=== PATIENT | female | born 1980 | race Caucasian/White ===

== ENCOUNTER 2016-11-23 13:15 | Emergency (ER) ==
[2016-11-23 13:47] LABS: MANUAL DIFF NEEDED? NO
--- NOTE | 2016-11-23 13:49 | PROVIDER DOCUMENTATION ---
HPI-Chest Pain - General Source: patient - History of Present Illness-CP Location: reports: central Chest Pain Radiation: reports: arms (L) Quality of Pain: reports: stabbing Severity in ED: mild Onset/Duration: this afternoon (1215) Timing: still present, intermittent Context/Activities at Onset: reports: light activity Modifying Factors: improves with: nothing Associated Symptoms: reports: nausea, vomiting. denies: abdominal pain, back pain, diaphoresis, dizziness, edema, fatigue, fever/chills, headache, heartburn , rash, shortness of breath, swelling/lump in chest, syncope, weakness Nitro Today/Relief: no nitro taken today Aspirin Treatment Today: no aspirin today (allergy to aspirin) Prior Chest Pain/Cardiac Workup: reports: no prior chest pain, no prior cardiac workup Similar Symptoms Previously?: No Recently Seen Here or By Another Healthcare Provider: No <Kym Martinez - Last Filed: 11/23/16 15:01> <Ari Ventura I - Last Filed: 11/23/16 15:24> - General Chief Complaint: Chest Pain Stated Complaint: chest pain Time Seen by Provider: 11/23/16 13:20 Allergies/Adverse Reactions: Patient Allergies Allergy/AdvReac Type Severity Reaction Status Date / Time aspirin Allergy SHORTNESS Verified 11/23/16 13:19 OF BREATH latex Allergy RASH Verified 11/23/16 13:19 Penicillins Allergy Unknown Verified 11/23/16 13:19 Sulfa (Sulfonamide Allergy Unknown Verified 11/23/16 13:19 Antibiotics) - History of Present Illness-CP Nature of Presenting Problem: Pt is 36 y/o F presents to the ED with chest pain. Pt states she was on her lunch break smoking when the chest pain started. Pt states the chest pain radiates to L arm. Pt states last night having a stomach virus causing her to have N/V/D. Pt states the pain is stabbing. Pt states still having N and V. ( Kym Martinez) Review of Systems - Adult - REVIEW OF SYSTEMS - ADULT Constitutional: denies: chills, fever Eyes: denies: decreased vision, blurred vision, double vision Ears, Nose, Mouth & Throat: denies: ear pain, nose pain, mouth swelling, throat pain Cardiovascular: reports: chest pain. denies: heart murmur, irregular heart rate Respiratory: denies: cough, shortness of breath, wheezing Gastrointestinal: denies: abdominal pain, diarrhea, nausea, vomiting Genitourinary: denies: dysuria, hematuria Musculoskeletal: reports: other (L arm pain). denies: bone pain, joint pain, neck pain Integumentary: denies: hives, itching Neurological: denies: dizziness/vertigo, headache/migraines Psychiatric: reports: no symptoms reported Endocrine: reports: no symptoms reported Hematologic/Lymphatic: reports: no symptoms reported Allergic/Immunologic: reports: no symptoms reported All Other Systems: Reviewed and Negative <Kym Martinez - Last Filed: 11/23/16 15:01> Past History - Adult - PAST MEDICAL HISTORY-ADULT Review of Records: reports: Nursing Assessment Review, Medications Reviewed, Social history reviewed & non-contributory. Major Childhood Illnesses: reports: denies history Cardiovascular: reports: denies history Respiratory: reports: denies history Gastrointestinal: reports: denies history Obstetrical/Gynecological: reports: denies history Genitourinary: reports: denies history Musculoskeletal: reports: denies history Neurological: reports: denies history Endocrine/Immune: reports: denies history Other Conditions: reports: denies history - PRIOR SURGERIES/PROCEDURES Surgical/Procedure History: reports: hysterectomy - IMMUNIZATION STATUS Childhood Immunizations: See Nurse Assessment Flu Vaccine: See Nurse Assessment - FAMILY HISTORY Family History: reviewed, not pertinent - SOCIAL HISTORY Smoking: cigarettes, less than 1 pack/day Provider spent 3-5 mins advising pt. on dangers of tobacco.: Discussed manners to quit use, and f/u contacts for add'l counseling. Substance Use: denies Living Situation: family <Kym Martinez - Last Filed: 11/23/16 15:01> Physical Exam-General - PHYSICAL EXAM-ADULT Initial Vital Signs Reviewed: Yes - CONSTITUTIONAL General Appearance: appears well, alert, no apparent distress - EYES Eyes: PERRL/EOMI, pink conjunctivae, fundi clear, no AV nicking - HEAD, EARS, NOSE, MOUTH & THROAT HENMT: normocephalic/atraumatic, moist mucous membranes, normal ENT inspection, TMs normal, pharynx normal - NECK Neck: non-tender, full range of motion, supple, normal inspection - RESPIRATORY Respiratory: chest non-tender, lungs clear, normal breath sounds, no pleuratic chest pain, no respiratory distress, no accessory muscle use - CARDIOVASCULAR Cardiovascular: normal peripheral pulses, regular rate, rhythm, no edema, no gallop, no JVD, no murmur - GASTROINTESTINAL (ABDOMEN) Abdominal Exam: normal bowel sounds, non tender, soft, no organomegaly, no pulsatile mass - LYMPHATIC Lymphatic: no adenopathy - MUSCULOSKELETAL Back Exam: normal inspection, no CVA tenderness, no vertebral tenderness Extremity: normal range of motion, non-tender, normal gait, normal inspection, no pedal edema, no calf tenderness, normal capillary refill - SKIN Integumentary: normal color, normal turgor, warm/dry - NEUROLOGIC Neurologic: grossly normal - PSYCHIATRIC Psych/Mental Status: normal mood/affect, oriented x 3 <Kym Martinez - Last Filed: 11/23/16 15:01> Progress - EKG 1 Time of EKG reading by physician:: 13:12 EKG Read and Signed by:: Ari Ventura EKG Interpretation (*Must complete 3 of following elements*): Normal Rate: 81 Rhythm: normal sinus rhythm Comments: normal ECG - XRAY 1 XRAY: Bilateral XRAY Study: Chest Impression: Normal XRAY Interpretation: negative exam <Kym Martinez - Last Filed: 11/23/16 15:01> <Ari Ventura I - Last Filed: 11/23/16 15:24> - PLAN OF CARE/RESULTS Progress/Plan/Lab Results: Laboratory Tests 11/23/16 13:30 WBC 9.23 RBC 4.07 L Hgb 13.2 Hct 38.3 MCV 94.1 MCH 32.4 H MCHC 34.5 RDW Std Deviation 12.4 Plt Count 294 MPV 10.4 Immature Gran % (Auto) 0.2 Neut % (Auto) 62.3 Lymph % (Auto) 30.2 [place] % (Auto) 6.8 Eos % (Auto) 0.2 Baso % (Auto) 0.3 Immature Gran # (Auto) 0.02 Neut # (Auto) 5.74 Lymph # (Auto) 2.79 [place] # (Auto) 0.63 H Eos # (Auto) 0.02 Baso # (Auto) 0.03 Orders Category Date Time Status Cardiac Monitoring DIRECTED Care 11/23/16 13:19 Active Oxygen Therapy- ED Nursing DIRECTED Care 11/23/16 13:19 Active Saline Loc NOW Care 11/23/16 13:19 Active CHEST-2 VIEWS [RAD] Stat Exams 11/23/16 13:19 Taken CBC WITH ELECTRONIC DIFF [HEME] Stat Lab 11/23/16 13:19 Ordered CK PROFILE [SP CHEM] Stat Lab 11/23/16 13:19 Ordered COMPREHENSIVE METABOLIC PANEL [CHEM] Stat Lab 11/23/16 13:19 Ordered MAGNESIUM [CHEM] Stat Lab 11/23/16 13:19 Ordered PRO B-NATRIURETIC PEPTIDE Stat Lab 11/23/16 13:[address]IME WITH INR PL [COAG] Stat Lab 11/23/16 13:[address] [COAG] Stat Lab 11/23/16 13:19 Ordered TROPONIN T Stat Lab 11/23/16 13:19 Ordered EKG [EKG] Stat Ther 11/23/16 13:19 Ordered Vital Signs - 24 hr 11/23/16 13:15 Temperature 97.2 F L Pulse Rate 89 Respiratory 18 Rate Blood Pressure 117/91 O2 Sat by Pulse 97 Oximetry Laboratory Tests 11/23/16 11/23/16 11/23/16 13:30 13:30 13:30 WBC RBC Hgb Hct MCV MCH MCHC RDW Std Deviation Plt Count MPV Immature Gran % (Auto) Neut % (Auto) Lymph % (Auto) [place] % (Auto) Eos % (Auto) Baso % (Auto) Immature Gran # (Auto) Neut # (Auto) Lymph # (Auto) [place] # (Auto) Eos # (Auto) Baso # (Auto) PT INR APTT (Factor Assay) Sodium 137 Potassium 3.7 Chloride 102 Carbon Dioxide 25 Anion Gap 10 BUN 9 Creatinine 0.6 Estimated GFR/1.73 m2 > 60 BUN/Creatinine Ratio 15 Glucose 112 H Calculated Osmolality 273 Calcium 9.3 Magnesium 2.0 Total Bilirubin 0.30 AST 16 ALT 10 Alkaline Phosphatase 63 Creatine Kinase 51 Troponin T < 0.010 [id number] Pept 24 Total Protein 6.3 Albumin 4.3 Globulin 2.0 Albumin/Globulin Ratio 2.0 11/23/16 11/23/16 13:30 13:30 WBC 9.23 RBC 4.07 L Hgb 13.2 Hct 38.3 MCV 94.1 MCH 32.4 H MCHC 34.5 RDW Std Deviation 12.4 Plt Count 294 MPV 10.4 Immature Gran % (Auto) 0.2 Neut % (Auto) 62.3 Lymph % (Auto) 30.2 [place] % (Auto) 6.8 Eos % (Auto) 0.2 Baso % (Auto) 0.3 Immature Gran # (Auto) 0.02 Neut # (Auto) 5.74 Lymph # (Auto) 2.79 [place] # (Auto) 0.63 H Eos # (Auto) 0.02 Baso # (Auto) 0.03 PT 13.7 INR 1.02 APTT (Factor Assay) 30.2 Sodium Potassium Chloride Carbon Dioxide Anion Gap BUN Creatinine Estimated GFR/1.73 m2 BUN/Creatinine Ratio Glucose Calculated Osmolality Calcium Magnesium Total Bilirubin AST ALT Alkaline Phosphatase Creatine Kinase Troponin T [id number] Pept Total Protein Albumin Globulin Albumin/Globulin Ratio (Kym Martinez) Departure <Kym Martinez - Last Filed: 11/23/16 15:01> - Departure Time of Disposition Order: 15:23 Certified Medical Emergency: Emergent <Ari Ventura I - Last Filed: 11/23/16 15:24> - Departure DIAGNOSIS: Atypical chest pain Disposition: HOME 01 Condition: Stable Referrals: Tiffanie Echols MD [Primary Care Provider] - Attestation - Scribe Verification/Attestation Scribe:: Kym Martinez Acting as Scribe for:: Ari Ventura Scribe documention review:: This chart was documented by a scribe and accurately reflects the service the provider performed and the decisions made by the provider. <Kym Martinez - Last Filed: 11/23/16 15:01> - Physician/ JEANIE Attestation Patient care was provided by Advanced Practice Provider:: Yes Advanced Practice Provider documentation review:: The Mid-level provider documentation, treatment plan and medical decision making was reviewed by the physician who agrees with all treatment and medical decision making by the MLP. The physician spent face to face time with patient:: Yes Advanced Practice Provider documentation review:: The physician spent face to face time with this patient and agrees with all MLP documentation, treatment, and medical decision making by the MLP. See provider notes for further information. <Ari Ventura I - Last Filed: 11/23/16 15:24> Physician Attestation - Physician Attestation I, the provider, attest to the following statement:: Ari Ventura Physician documentation Attestation:: This documentation recorded by the scribe accurately reflects the service I personally performed and the decisions made by me. <Ari Ventura I - Last Filed: 11/23/16 15:24>
[2016-11-23 13:50] LABS: BASO% 0.3 % (0.0-0.8); EOS# 0.02 X1000 (0.0-0.7); EOS% 0.2 % (0.0-10.0); HEMATOCRIT 38.3 % (37.0-47.0); HEMOGLOBIN 13.2 g/dL (12.0-16.0); IMM GRAN# 0.02 X1000 (0.0-0.04); IMM GRAN% 0.2 % (0.0-0.5); LYMPH# 2.79 X1000 (1.2-3.4); LYMPH% 30.2 % (20.5-51.1); MCH 32.4 PG (27-31); MCHC 34.5 g/dL (33-37); MCV 94.1 FL (81-99); MONO# 0.63 X1000 (0.11-0.59); MONO% 6.8 % (1.7-9.3); MPV 10.4 FL (7.4-10.4); NEUT% 62.3 % (42.2-75.2); PLT 294 X1000 (130-400); RBC 4.07 XMIL (4.2-5.4)
[2016-11-23 14:10] LABS: AGAP 10; ALBUMIN 4.3 g/dL (3.5-5.0); ALKALINE PHOSPHATASE 63 U/L (32-104); BUN 9 mg/dL (8-22); CALCIUM 9.3 mg/dL (8.8-10.2); CHLORIDE 102 mmol/L (98-107); CK PROFILE 51 U/L (24-173); COSMO 273; GOT 16 U/L (10-30); GPT 10 U/L (10-36); POTASSIUM 3.7 mmol/L (3.5-5.1); SODIUM 137 mmol/L (136-145); TCO2 25 mmol/L (25-35); TOTAL PROTEIN 6.3 g/dL (6.3-8.3)
--- NOTE | 2016-11-23 14:22 | EKG Report ---
Test Performed on : 11/23/2016 1:12:15 PM Test Reason : CHEST PAIN Blood Pressure : / mmHG Vent. Rate : 081 BPM Atrial Rate : 081 BPM P-R Int : 116 ms QRS Dur : 078 ms QT Int : 358 ms P-R-T Axes : 023 045 044 degrees QTc Int : 415 ms Normal sinus rhythm. Normal ECG No previous ECGs available Unconfirmed Result
[2016-11-23 14:23] LABS: INR 1.02 (0.86-1.15); PROTIME 13.7 Seconds (12.1-15.5)
[2016-11-23 14:24] LABS: PTT PL 30.2 Seconds (22.6-43.9)
--- NOTE | 2016-11-23 14:40 | Diag Imaging Result Document ---
PROCEDURE NAME: CHEST-2 VIEWS - 11/23/2016 CHEST X-RAY, 2 VIEWS: COMPARISON: None. FINDINGS: The lungs are normally expanded and clear. Heart size and mediastinal contours are normal. No pneumothorax or pleural effusion. IMPRESSION: Negative exam.
[2016-11-23 15:54] VITALS: BP 124/67
== END 2016-11-23 15:53 | disposition home or self-care (01) ==
LOC: P.ED 13:15
DX: R07.89 Other chest pain (principal); M79.602 Pain in left arm; R11.2 Nausea with vomiting, unspecified; F17.210 Nicotine dependence, cigarettes, uncomplicated; Z71.6 Tobacco abuse counseling
CPT/HCPCS: 71020; 80053; 82550; 83735; 83880; 84484; 85025; 85610; 85730; 93005; 99284